=== PATIENT | female | born 1960 | race African-American/Black ===

== ENCOUNTER 2023-03-05 20:48 | Emergency (ER) | payer OTHER ==
[~2023-03-05] VITALS: Ht 170.2 cm; Wt 68.0 kg
[2023-03-05 20:53] VITALS: O2SAT 99
[2023-03-05] MEDS ORDERED: ACETAMINOPHEN 325MG TABLET PO NR (21:30)
[2023-03-05] MEDS ORDERED: LIDOCAINE 5% PATCH TOP NR (21:30)
[2023-03-05 23:03] VITALS: TEMP 98.1
[2023-03-06] MEDS ORDERED: ACET-2708 MT (00:54)
[2023-03-06] MEDS ORDERED: LIDO700A15 TP (00:54)
[2023-03-06 01:00] VITALS: BP 196/106; PULSE 87; RESP 16
== END 2023-03-06 01:00 | disposition home or self-care (01) ==
LOC: ER 20:48
DX: S00.83XA Contusion of other part of head, initial encounter (principal); R07.89 Other chest pain; M25.562 Pain in left knee; I10 Essential (primary) hypertension; V49.49XA Driver injured in collision with other motor vehicles in traffic accident, initial encounter; Y93.89 Activity, other specified; Y92.89 Other specified places as the place of occurrence of the external cause; Y99.8 Other external cause status
CPT/HCPCS: 70486; 71101; 73560; 93005; 99284